=== PATIENT | female | born 1980 ===

== ENCOUNTER 2016-09-18 15:42 | Emergency (ER) | payer BC ==
[2016-09-18 16:18] VITALS: BP 124/88
[2016-09-18] MEDS ORDERED: HYDROcodone/ACETAMIN 5-325 MG* 1 TAB PO ONE ×2 (17:14→17:48)
[2016-09-18] MEDS ORDERED: Cyclobenzaprine TAB* 10 MG PO ONE (17:48)
--- NOTE | 2016-09-18 18:00 | UC ---
Yousuf Herrera Alfonso, scribed for Ankur Beck MD on 09/18/16 at 1714 . Neck Pain HPI - HPI Summary HPI Summary: This patient is a 36 year old F presenting to [facility] accompanied by mother with a chief complaint of neck pain since 5 days ago. The CC is described as throbbing. The pain radiates to her RUE as is described as a soreness and weakness. Pt rates the pain 10/10 in severity. Symptoms aggravated by position and alleviated by nothing. Sx not alleviated by 800 mg Tylenol QID and one Norflex. Pt reports fever (14-7 days ago), diaphoresis, body ache, insomnia, and throbbing headache (resolved). Pt denies nausea, vomiting, LE pain, and back pain. She presented to a chiropractor for this complain yesterday. Pt denies recent injury. Patient medications reviewed this visit. - History of Current Complaint Chief Complaint: UCUpperExtremity Stated Complaint: NECK PAIN,FEVER,ARM NUMBNESS Time Seen by Provider: 09/18/16 17:01 Hx Obtained From: Patient Hx Last Menstrual Period: 09/14/16 Onset/Duration Of Injury/Symptoms: Days - 5 Mechanism Of Injury: No Known Trauma Timing: Constant Onset/Duration: Sudden Onset, Lasting Days - 5, Still Present Severity: Severe Pain Intensity: 10 Pain Scale Used: 0-10 Numeric Location: Discrete At: - Neck Character: Throbbing Aggravating Factors: Position Alleviating Factors: Nothing Associated Signs & Symptoms: Positive: Weakness, Headache - Allergies/Home Medications Allergies/Adverse Reactions: Allergies Allergy/AdvReac Type Severity Reaction Status Date / Time No Known Allergies Allergy Verified 12/30/11 17:32 Home Medications: Home Medications Citalopram TAB* [CeleXA TAB*] 10 mg PO BEDTIME 09/18/16 [History Confirmed 09/18] Multiple Vitamin [Multivitamins] 1 cap PO 09/18/16 [History] Norgestimate-Eth Estradiol(NF) [Ortho Tri-Cyclen (NF)] 1 tab PO DAILY 09/18/16 [ History Confirmed 09/18/16] PMH/Surg Hx/FS Hx/Imm Hx - Surgical History Surgical History: Yes Surgery Procedure, Year, and Place: 2 c-sections - Family History Known Family History: Positive: Other - Cancer in aunt and grandmother. - Social History Alcohol Use: Occasionally Substance Use Type: None Smoking Status (MU): Never Smoked Tobacco - Immunization History Most Recent Tetanus Shot: PT UNSURE Review Of Systems Constitutional: Positive: Fever - (14-7 days ago), Other - Positive diaphoresis. Gastrointestinal: Positive: Other - Negative N/V Musculoskeletal: Positive: Other: - Positive neck pain, and body ache; negative LE pain, and back pain. Neurological: Positive: Headache - Throbbing, Other - Positive insomnia All Other Systems Reviewed And Are Negative: Yes Physical Exam Triage Information Reviewed: Yes Appearance: Well-Appearing, No Pain Distress Vital Signs: Initial Vital Signs Temp 98.3 F 09/18/16 16:14 Pulse 73 09/18/16 16:14 Resp 18 09/18/16 16:14 BP 124/88 09/18/16 16:14 Pulse Ox 100 09/18/16 16:14 Vital Signs Reviewed: Yes Eyes: Positive: Other: - EOMI and JULISSA ENT: Positive: Normal ENT inspection Neck: Positive: Supple, Nontender Respiratory: Positive: Chest non-tender, Lungs clear, Normal breath sounds Cardiovascular: Positive: RRR Abdomen Description: Positive: Nontender, Soft Bowel Sounds: Positive: Present Musculoskeletal: Positive: Other: - Tender right of the midline at C3 and C4. Pain with ROM of neck. Arms good strength, pulses, no sensation deficit, strength 5/5, pain with extension and abduction bilaterally, decreased ROM secondary to pain. Neurological: Positive: Alert Psychological: Positive: Age Appropriate Behavior Skin Exam: Normal Neck Pain Course/Dx - Course Course Of Treatment: PATIENT HAD FEVER PRIOR TO START OF NECK PAIN 1 WEEK AGO. SHE HAS NOT HAD FEVER WITH THE NECK PAIN. REPORTS HER RT ARM NOT FEELING RIGHT. NO NEUROLOGIC DEFICIT ON EXAM. DISCUSSED POSSIBLE NEED FOR MRI IF PAIN PERSISTS OR ANY NEUROLOGIC DEFICIT. NO CT IN CLINIC SO, NO CT IMAGING DONE TODAY. WILLL F/U WITH PMD. TOLD PATIENT TO GO TO ED IF WORSENING OR NEUROLOGIC DEFICIT. - Differential Dx/Diagnosis Provider Diagnoses: NECK PAIN WITH RADICULOPATHY INTO RT ARM Discharge - Discharge Plan Condition: Stable Disposition: HOME Prescriptions: Cyclobenzaprine TAB* [Flexeril 10 MG TAB*] 10 mg PO TID PRN #15 tab MDD 3 PRN Reason: Pain HYDROcodone/ACETAMIN 5-325 MG* [Belding 5-325 TAB*] 1 tab PO Q4H PRN #20 tab MDD 6 PRN Reason: Pain Patient Education Materials: Cervical Radiculopathy (ED), Neck Pain (ED) Referrals: Juan Adam MD [Primary Care Provider] - Additional Instructions: FOLLOW UP WITH YOUR DOCTOR. CALL TOMORROW FOR FOLLOW UP. DISCUSS FURTHER IMAGING TO INCLUDE THE POSSIBILITY OF AN MRI IF THERE ARE NEUROLOGIC DEFICITS. GO TO THE EMERGENCY DEPARTMENT FOR ANY WORSENING OF YOUR CONDITION; WEAKNESS, NUMBNESS, PAIN OR QUESTIONS OR CONCERNS. The documentation as recorded by the Yousuf dejseus Alfonso accurately reflects the service I personally performed and the decisions made by me, Ankur Beck MD.
== END 2016-09-18 18:02 | disposition home or self-care (01) ==
LOC: UCEAST 15:42
DX: M54.12 Radiculopathy, cervical region (principal)
CPT/HCPCS: 99213; A9270-GY; G0463